=== PATIENT | female | born 1960 | race Hispanic/Latino ===

== ENCOUNTER 2017-09-10 08:10 | Day surgery (SDC) | payer MEDICARE ==
[2017-09-07 16:00] VITALS: BP 138/69
[2017-09-07 16:28] LABS: APPEARANCE,URINE Clear (CLEAR); BILIRUBIN,URINE Negative (NEGATIVE); COLOR,URINE Yellow (YELLOW); GLUCOSE, URINE (UA) Negative (NEGATIVE); KETONES,URINE Negative (NEGATIVE); LEUKOCYTE ESTERASE ,URINE Negative (NEGATIVE); NITRATE,URINE Negative (NEGATIVE); OCCULT BLOOD,URINE Trace (NEGATIVE); PH,URINE 5.5 (5.0-8.0); PROTEIN,URINE Negative (NEGATIVE); UROBILINOGEN,URINE 0.2 mg/dL (0.2-1.0)
[2017-09-07 16:40] LABS: MUCUS,URINE Few LPF (None Seen); SQUAMOUS EPITHELIAL CELL,UR Few /LPF (0-2); WBC,URINE 0-1 /HPF (0-1)
[2017-09-07 16:41] LABS: BACTERIA,URINE Few /HPF (None Seen)
[~2017-09-10] VITALS: Ht 157.5 cm; Wt 83.6 kg
[2017-09-10] VITALS (16 sets, daily range): BP systolic 95–128; BP diastolic 50–75
[~2017-09-10 08:10] MED LIST: BUSP15TA3 PO; CARB200T6 PO; DULO60CA44 PO; GABA-531 PO; LEVAHFA IH; LINA145C PO; MOME17N NS; QUET150T PO; SUMA25TA9 PO
[2017-09-10] MEDS ORDERED: LACTATED RINGERS 1000ML 1,000 ML IV ONE (09:14)
[2017-09-10] MEDS: CEFTRIAXONE SODIUM 1 GM ONE ×2 (09:31→09:45)
[2017-09-10] MEDS ORDERED: BOTULINUM TOXIN TYPE A 100 UNITS/VIAL ONE (09:34)
[2017-09-10] MEDS ORDERED: MIDAZOLAM HCL 1 MG/ML 2ML VIAL ONE (09:37)
[2017-09-10] MEDS ORDERED: PROPOFOL 10 MG/ML 20ML VIAL IV ONE (09:37)
[2017-09-10] MEDS ORDERED: FENTANYL CITRATE PF 50 MCG/1 ML 2ML VIAL ONE (09:38)
[2017-09-10] MEDS ORDERED: NEOSTIGMINE METHYLSULFATE 1MG/ML IV ONE (09:47)
[2017-09-10] MEDS ORDERED: DEXAMETHASONE SOD PHOSPHATE 10MG/ML 1ML VIAL ONE (10:04)
[2017-09-10] MEDS ORDERED: PHENYLEPHRINE HCL 10 MG/ML 1ML VIAL IV ONE (10:04)
[2017-09-10] MEDS ORDERED: ONDANSETRON HCL 4 MG/2 ML VIAL ONE ×2 (10:04→10:06)
[2017-09-10] MEDS ORDERED: LIDOCAINE PF 2% 5ML ABBOJECT ONE (10:04)
[2017-09-10] MEDS ORDERED: SODIUM CHLORIDE 0.9% 10 ML VIAL ONE (10:04)
[2017-09-10] MEDS ORDERED: KETOROLAC TROMETHAMINE 30MG/ML ONE (10:42)
== END 2017-09-10 12:05 | disposition home or self-care (01) ==
LOC: DAH 08:10
PROVIDERS: ATTEND Urology
DX: N31.9 Neuromuscular dysfunction of bladder, unspecified (principal); N39.41 Urge incontinence; E78.5 Hyperlipidemia, unspecified; G40.909 Epilepsy, unspecified, not intractable, without status epilepticus; J45.909 Unspecified asthma, uncomplicated; G47.30 Sleep apnea, unspecified; I10 Essential (primary) hypertension; Z98.890 Other specified postprocedural states
CPT/HCPCS: 52287; 81001; 87088; A4215; A4218; A4358; A4510; A4600; J0585; J0696; J1100; J1885; J2001; J2250; J2370; J2405 ×2; J2704; J2710; J3010; J7120 ×2

== ENCOUNTER 2018-12-30 08:28 | Day surgery (SDC) | payer MEDICARE ==
[2018-12-27 10:19] VITALS: BP 158/77
[2018-12-27 11:32] LABS: APPEARANCE,URINE Clear (CLEAR); BILIRUBIN,URINE Negative (NEGATIVE); COLOR,URINE Yellow (YELLOW); GLUCOSE, URINE (UA) Negative (NEGATIVE); KETONES,URINE Negative (NEGATIVE); LEUKOCYTE ESTERASE ,URINE Small (NEGATIVE); NITRATE,URINE Negative (NEGATIVE); OCCULT BLOOD,URINE Trace (NEGATIVE); PH,URINE 7.5 (5.0-8.0); PROTEIN,URINE Negative (NEGATIVE); UROBILINOGEN,URINE 0.2 mg/dL (0.2-1.0)
[2018-12-27 11:53] LABS: BACTERIA,URINE Rare /HPF (None Seen); MUCUS,URINE Rare LPF (None Seen); RBC,URINE 0-1 /HPF (0-1); SQUAMOUS EPITHELIAL CELL,UR Few /HPF (0-2)
--- NOTE | 2018-12-29 14:13 | NUR ---
ABNORMAL UA: NOTIFIED JULITO BORJA AT DR. WREN OFFICE REGARDING ABNORMAL UA AND UA C& S, WILL NOTIFY DR. WREN OF RESULTS AND RETURN CALL IF ANY ORDERS GIVEN. LABS FAXED TO DR. WREN OFFICE.
[2018-12-30] VITALS (18 sets, daily range): BP systolic 102–138; BP diastolic 47–73
[~2018-12-30] VITALS: Ht 160 cm; Wt 83.8 kg
[2018-12-30] MEDS: CEFTRIAXONE SODIUM 1 GM IVP SCH ×2 (06:00→11:05)
[~2018-12-30 08:28] MED LIST changes: +BOTULINUM TOXIN TYPE A 100 UNITS/VIAL INJ SCH; -MOME17N NS; -QUET150T PO; +QUET150T2 PO
[2018-12-30] MEDS ORDERED: LACTATED RINGERS 1000ML 1,000 ML IV ONE (09:00)
[2018-12-30] MEDS ORDERED: MIDAZOLAM HCL 1 MG/ML 2ML VIAL ONE ×2 (09:37→10:10)
[2018-12-30] MEDS ORDERED: LIDOCAINE PF 2% 5ML ABBOJECT ONE (10:10)
[2018-12-30] MEDS ORDERED: ONDANSETRON HCL 4 MG/2 ML VIAL ONE (10:10)
[2018-12-30] MEDS ORDERED: DEXAMETHASONE SOD PHOSPHATE 10MG/ML 1ML VIAL ONE (10:10)
[2018-12-30] MEDS ORDERED: PROPOFOL 10 MG/ML 20ML VIAL IV ONE (10:10)
[2018-12-30] MEDS ORDERED: FENTANYL CITRATE PF 50 MCG/1 ML 2ML VIAL ONE (10:11)
[2018-12-30] MEDS ORDERED: SODIUM CHLORIDE 0.9% 10 ML VIAL ONE (10:50)
[2018-12-30] MEDS ORDERED: EPHEDRINE SULFATE 50 MG/ML AMPULE ONE (11:16)
--- NOTE | 2018-12-30 12:25 | NUR ---
D/C PT. LEFT VIA WHEEL CHAIR IN PVT CAR WITH DAUGHTER. RX SCRIPT GIVEN TO DAUGHTER.
== END 2018-12-30 13:20 | disposition home or self-care (01) ==
LOC: DAH 08:28
PROVIDERS: ATTEND Urology
DX: N39.41 Urge incontinence (principal); N31.9 Neuromuscular dysfunction of bladder, unspecified; E78.5 Hyperlipidemia, unspecified; Z98.890 Other specified postprocedural states; Z79.899 Other long term (current) drug therapy; J45.909 Unspecified asthma, uncomplicated; M81.0 Age-related osteoporosis without current pathological fracture; F41.9 Anxiety disorder, unspecified; F32.9 Major depressive disorder, single episode, unspecified
CPT/HCPCS: 52287; 81001; 87088; A4215; A4358; A4600; J0585; J0696; J1100; J2001; J2250 ×2; J2405; J2704; J3010; J3490; J7120 ×2

== ENCOUNTER 2019-04-07 22:17 | Emergency (ER) | payer MEDICARE ==
[~2019-04-07 22:17] MED LIST changes: -BOTULINUM TOXIN TYPE A 100 UNITS/VIAL INJ SCH
[2019-04-07 23:25] LABS: BASOPHILS % (AUTO) 0.5 % (0.0-5.0); EOSINOPHILS % (AUTO) 2.8 % (0.0-8.0); LYMPHOCYTES % (AUTO) 30.7 % (21.0-51.0); MEAN CORPUSCULAR HGB CONC 34.7 g/dL (32.0-36.0); MEAN CORPUSCULAR VOLUME 89.2 fL (79-99); MONOCYTES % (AUTO) 7.7 % (3.0-13.0); NEUTROPHILS % (AUTO) 58.3 % (40.0-77.0); PLATELET COUNT (AUTO) 234 K/uL (130-400); RED BLOOD CELL COUNT(AUTO) 4.48 MIL/uL (4.00-5.50); RED CELL DISTRIBUTION WIDTH 14.1 % (11.0-15.5); WHITE BLOOD COUNT (AUTO) 9.1 K/uL (4.8-10.8)
[2019-04-07] MEDS ORDERED: METOCLOPRAMIDE 10 MG/2 ML VIAL ONE (23:25)
[2019-04-07] MEDS ORDERED: SODIUM CHLORIDE 0.9% 1000ML 1,000 ML IV ONE (23:26)
[2019-04-07] MEDS ORDERED: DiphenhydrAMINE HCL 50 MG/ML VIAL ONE ×2 (23:26→23:30)
[2019-04-07] MEDS ORDERED: KETOROLAC TROMETHAMINE 30MG/ML ONE (23:26)
[2019-04-07 23:28] LABS: CREATININE 0.7 mg/dL (0.5-1.5); POTASSIUM 3.1 mmol/L (3.5-5.1)
[2019-04-08] MEDS ORDERED: POTASSIUM CHLORIDE 20 MEQ ERTAB PO ONE (00:53)
== END 2019-04-08 01:25 | disposition home or self-care (01) ==
LOC: EDH 22:17
DX: E87.6 Hypokalemia (principal); R51 Headache; R42 Dizziness and giddiness; R11.0 Nausea; I10 Essential (primary) hypertension; F32.9 Major depressive disorder, single episode, unspecified; Z88.8 Allergy status to other drugs, medicaments and biological substances; Z98.890 Other specified postprocedural states
CPT/HCPCS: 36415; 70450; 80048; 85025; 87804 ×2; 96361; 96374; 96375; 99285; J1200 ×2; J1885; J2765; J7030